=== PATIENT | female | born 1980 | race Caucasian/White ===

== ENCOUNTER 2018-10-15 14:51 | Inpatient (IN) ==
[2018-10-15] MEDS ORDERED: M.V.I.-12 10 ML, FOLIC ACID 1 MG, MAGNESIUM SULFATE 1 GM, THIAMINE 100 MG in NS 1,000 ML IV ONE (14:55)
[2018-10-15] MEDS ORDERED: ZOFRAN IV PRN (14:55)
[2018-10-15] MEDS ORDERED: VANCOMYCIN IV PER PHARMACY MISC SCH (15:00)
[2018-10-15] MEDS ORDERED: NS 1,000 ML IV SCH (15:00)
[2018-10-15] MEDS ORDERED: ROCEPHIN 1 GM in NS 50 ML IV SCH (15:00)
[2018-10-15 16:37] LABS: HEMATOCRIT 48.6 % (37.0-47.0); HEMOGLOBIN 17.1 g/dL (12.0-16.0); MCH 30.2 PG (27-31); MCHC 35.2 g/dL (33-37); MCV 85.9 FL (81-99); MPV 11.2 FL (7.4-10.4); RBC 5.66 XMIL (4.2-5.4); RDW 14.8 % (11.5-14.5); WBC 18.77 X1000 (4.8-10.8)
[2018-10-15] MEDS ORDERED: VANCOMYCIN 2,000 MG in NS 500 ML IV ONE (17:00)
[2018-10-15 17:22] LABS: AGAP 18; ALBUMIN 4.2 g/dL (3.5-5.0); ALKALINE PHOSPHATASE 88 U/L (32-104); BUN 10 mg/dL (8-22); CALCIUM 9.2 mg/dL (8.8-10.2); CHLORIDE 98 mmol/L (98-107); COSMO 268; CREATININE 0.7 mg/dL (0.5-0.9); ESTIMATED GFR > 60; GLUCOSE 70 mg/dL (70-104); GOT 10 U/L (10-30); GPT 17 U/L (10-36); POTASSIUM 3.9 mmol/L (3.5-5.1); SODIUM 135 mmol/L (136-145); TCO2 19 mmol/L (25-35); TOTAL PROTEIN 6.9 g/dL (6.3-8.3)
--- NOTE | 2018-10-15 17:50 | Diag Imaging Result Doc PS360 ---
EXAM: CT ABDOMEN/PELVIS W/WO JOSE LUISAS 10/15/2018 HISTORY: colitis TECHNIQUE: This exam was performed using automated exposure control, adjustment of mA or kV according to patient size, and/or use of iterative reconstruction technique. COMMENT: The current examination is compared with the previous study of 10/13/2018. There is somewhat worsened atelectasis in both lung bases. There are numerous granulomata in the spleen. There is no evidence of nephrolithiasis or hydronephrosis. There are inflammatory changes surrounding the descending colon with some extraluminal gas seen on image 81. This is presumably due to a focus of diverticulitis. This was also present at the time the previous examination. There is no evidence of bowel obstruction abdominal aortic aneurysm or free intra-abdominal gas. There is some periaortic adenopathy which is slightly worse with a node below the left renal pedicle measuring almost 14 mm in long axis. Pelvis: The appendix is normal in appearance. There is diverticulosis in the sigmoid colon without evidence of acute diverticulitis. There is a calcification in the fat anteriorly adjacent to the proximal sigmoid colon which was present at the time the previous study and may be a result of previous epiploic appendagitis. The regional skeleton appears to be intact. There is a hemangioma on the right at T12. IMPRESSION: Diverticulitis in the mid descending colon. This appears slightly worse than on the previous examination but there is still no definite defined abscess. Electronically signed by Ran Rankin 10/15/2018 5:47 PM
[2018-10-15] MEDS: FLAGYL 500 MG/NS 500 MG/100 ML IVPB IV SCH (21:21)
[2018-10-15] MEDS: NORCO-5 PO PRN (21:21)
[2018-10-16] MEDS: FLAGYL 500 MG/NS 500 MG/100 ML IVPB IV SCH ×2 (01:11→11:39)
[2018-10-16 05:39] VITALS: BP 124/60
[2018-10-16 06:41] LABS: HEMATOCRIT 46.4 % (37.0-47.0); HEMOGLOBIN 15.7 g/dL (12.0-16.0); MCH 28.9 PG (27-31); MCHC 33.8 g/dL (33-37); MCV 85.3 FL (81-99); MPV 11.2 FL (7.4-10.4); RBC 5.44 XMIL (4.2-5.4); RDW 14.6 % (11.5-14.5); WBC 11.71 X1000 (4.8-10.8)
[2018-10-16 07:10] LABS: SODIUM 137 mmol/L (136-145)
[2018-10-16 07:12] LABS: AGAP 14; ALBUMIN 3.4 g/dL (3.5-5.0); ALKALINE PHOSPHATASE 79 U/L (32-104); BUN 10 mg/dL (8-22); CALCIUM 8.5 mg/dL (8.8-10.2); CHLORIDE 105 mmol/L (98-107); COSMO 271; CREATININE 0.6 mg/dL (0.5-0.9); ESTIMATED GFR > 60; GLUCOSE 72 mg/dL (70-104); GOT 11 U/L (10-30); GPT 15 U/L (10-36); MAGNESIUM 2.3 mg/dL (1.5-2.7); POTASSIUM 4.1 mmol/L (3.5-5.1); TCO2 19 mmol/L (25-35); TOTAL PROTEIN 6.6 g/dL (6.3-8.3)
[2018-10-16] MEDS ORDERED: VANCOMYCIN 2,000 MG in NS 500 ML IV SCH (08:00)
[2018-10-16] MEDS ORDERED: FLAGYL 500 MG/NS 500 MG/100 ML IVPB IV SCH (08:00)
[2018-10-16] MEDS: NORCO-5 PO PRN (09:02)
[2018-10-16] MEDS ORDERED: ZOFRAN ODT PO PRN (12:55)
[2018-10-16] MEDS ORDERED: ULTRAM PO SCH (13:00)
--- NOTE | 2018-10-16 14:18 | Diag Imaging Result Doc PS360 ---
US ABDOMEN-COMPLETE - 10/16/2018 INDICATION: choleliathisis TECHNIQUE: Nascimento scale, color Doppler, and duplex evaluation of the abdomen was performed. COMPARISON: None FINDINGS: The liver appears enlarged measuring 20 cm. No focal masses are appreciated. The IVC and aorta appear normal. The pancreas is obscured by bowel gas artifact. The gallbladder contains a 4 mm nonshadowing echogenicity adherent to the wall consistent with tumefactive sludge or polyp. There is a a normal caliber wall. No sonographic Petersen's sign. The common bile duct measures 4 mm. The portal vein is patent with hepatopetal flow. Spleen is unremarkable. The kidneys appear normal bilaterally. There is no hydronephrosis. IMPRESSION: 4 mm gallbladder wall polyp versus tumefactive sludge. Hepatomegaly. Electronically signed by Kelsie Cleaning 10/16/2018 2:15 PM
[2018-10-16] MEDS ORDERED: FLAGYL PO SCH (21:00)
--- NOTE | 2018-10-17 02:51 | HISTORY AND PHYSICAL ---
CHIEF COMPLAINT: Nausea, vomiting. HISTORY OF PRESENT ILLNESS: Patient is a 38-year-old female who actually went to the ER a few days ago and was told she had colitis and was discharged home. Her white count was 25. She notes that after getting home she has attempted to keep down her oral antibiotics, but has not really kept down any liquids, has not kept down any food. She continues to worsen. States she still feels generally weak and fatigued. ALLERGIES: Latex, Levaquin and penicillin all causing a rash. MEDICATIONS: Benazepril, albuterol, Mobic, Neurontin, hydrocodone p.r.n., Cymbalta. Currently is also on Flagyl, Bactrim and Zofran due to her colitis. FAMILY HISTORY: Positive for colitis. SOCIAL HISTORY: Patient is . Continues to smoke. Does not drink. REVIEW OF SYSTEMS: She denies any fevers after going home, but states she is still having intense abdominal pain, frequent nausea. She is not able to keep down liquids. She has been tired and fatigued, having generalized aches and pains. Denies any hematemesis, hematochezia, melena, hematuria. Denies dysuria, urinary frequency, urgency. Denies skin rashes, weight loss or weight gain. PHYSICAL EXAMINATION: VITAL SIGNS: Reviewed. Temperature 97.8 degrees, pulse 91, respiratory 18, BP 124/60. GENERAL: Patient is awake, alert, very pleasant talk with. She is in no current respiratory distress. HEENT: Normocephalic. NECK: Supple. CARDIOVASCULAR: Regular rate. No murmurs. CHEST: Clear and unlabored. ABDOMEN: Soft. Decreased but positive bowel sounds. Diffusely tender. No hepatosplenomegaly noted. EXTREMITIES: Moves all extremities. NEUROLOGIC: No focal changes. SKIN: Warm, dry. No rashes. ASSESSMENT: 1. Colitis. 2. Leukocytosis. White count is actually a little bit better. She is currently at 18. 3. Nausea and vomiting. 4. Volume depletion. 5. Chronic tobacco abuse. 6. Hypertension. 7. Chronic pain. 8. Chronic anxiety, depression. PLAN: We will place patient in the hospital. We will place her on Rocephin, IV Flagyl and vancomycin. We will continue to follow. We will advance diet as tolerated. cc: Ramin Keita MD
[2018-10-17] MEDS ORDERED: CYMBALTA PO SCH (09:00)
[2018-10-17] MEDS ORDERED: LOTENSIN PO SCH (09:00)
--- NOTE | 2018-10-17 19:14 | DISCHARGE SUMMARY ---
ADMISSION DATE: 10/15/2018 DISCHARGE DATE: 10/16/2018 DISCHARGE DIAGNOSES: 1. Colitis, improved. 2. Hypertension. 3. Chronic pain. 4. Chronic anxiety and depression. 5. Leukocytosis, resolved. 6. Volume depletion, resolved. CONSULTATIONS: None. PROCEDURES: None. BRIEF HOSPITAL COURSE: The patient is a 38-year-old female who presented to the hospital, treated in the usual fashion. Placed on IV antibiotics. Thankfully, she continued to improve. On discharge, she was able to tolerate a regular diet, without any difficulty. She will be discharged home. Again, discussed with her the perils of smoking, as well as ways to stop. She will be discharged on Omnicef, Flagyl, as well as her other home regular medications. TIME SPENT: Greater than 30 minutes was spent in total care. cc: Ramin Keita MD
== END 2018-10-16 14:15 | disposition home or self-care (01) | DRG 392 ==
LOC: P.DIRADM 14:51 → P.MEDSURG 15:05
PROVIDERS: ADMIT Family Medicine; ATTEND Family Medicine
CPT/HCPCS: 74178; 76700; 80053; 83735; 84443; 85027; 87040; 87088; A9270; J0696; J3370; J3411; J3475; J7030; J7040; Q9967; S0030